=== PATIENT | male | born 2000 | race Caucasian/White ===

== ENCOUNTER 2022-11-27 14:24 | Emergency (ER) | payer OTHER, SELFPAY ==
[2022-11-27 14:32] VITALS: BP 145/83; PULSE 88; RESP 20; TEMP 36.6; O2SAT 99; BMI 22.9
--- NOTE | 2022-11-27 15:16 | ED.NAVMDI ---
HPI - Nausea/Vomiting/Diarrhea General Chief complaint: Nausea/Vomiting Stated complaint: Food Poisoning Time Seen by Provider: 11/27/22 15:13 History of Present Illness HPI Narrative: This 21-year-old male comes in with his girlfriend. They both began to have nausea, vomiting, and diarrhea that started this morning. He ate some [employer] pizza last night and is suspicious that this may have triggered these symptoms. He did not feel any symptoms until this morning however. He has not had any fever or blood in the toilet. Prior to this he was in good health. Related Data Previous Rx's Medication Instructions Recorded ondansetron HCl 4 mg tablet 4 mg PO Q6H #10 tabs 11/27/22 Allergies Allergy/AdvReac Type Severity Reaction Status Date / Time Penicillins Allergy Severe Anaphylaxis Verified 11/27/22 14:37 Review of Systems Status of ROS: Reports: 10 or more systems reviewed and unremarkable except as noted in History and below Narrative: Constitutional: No fevers, no weight gain or loss. Eyes: No discharge. No vision changes. HENT: No congestion, no sore throat, no ear pain. Cardiovascular: No chest pain, no palpitations. Respiratory: No shortness of breath, no wheezes, no cough. Gastrointestinal: Nausea, vomiting, and diarrhea. Genitourinary: No dysuria, no hematuria. Musculoskeletal: Normal range of motion. Skin: No rashes, no pruritis. Neurological: No dizziness, weakness, sensory change, speech change. Endo/Heme/Allergies: No bruising or bleeding. No polydipsia. Pysch: no suicidality, no anxiety, no insomnia. All other systems reviewed and are negative. Exam Narrative: Exam Narrative: Constitutional: Well-developed, well-nourished, no acute distress. HEENT: Normocephalic, atraumatic. Neck: Normal range of motion. Nontender. Supple. Heart: Regular. No murmurs. Normal rate. Intact distal pulses. Lungs: Clear to auscultation. No chest discomfort. No wheezes, rhonchi, or rales. Abdomen: Normal bowel sounds. No rebound tenderness. Genitalia: Deferred. Back: No midline tenderness. Normal range of motion. Extremities: Normal range of motion. No injury. Skin: Intact. No rash. Warm. No erythema or pallor. Neurologic: No altered sensation. No weakness. Alert and oriented. Psychiatric: No suicidality. No anxiety or depression. No insomnia. Nursing notes and vitals signs are reviewed. Const: Vital Signs, click to edit/add: Vital Signs - 24 hr 11/27/22 14:32 Temperature 97.9 F Pulse Rate [Pulse Oximeter] 88 Respiratory Rate 20 Blood Pressure [Ri ght Upper Arm] 145/83 H Pulse Oximetry 99 Oxygen Delivery Me thod Room Air Course Vital Signs Vital signs: Initial Vital Signs Temperature 97.9 F 11/27/22 14:32 Temperature Source Oral 11/27/22 14:32 Pulse Rate 88 11/27/22 14:32 Pulse Rhythm 11/27/22 14:32 Pulse Strength 3+ Normal 11/27/22 14:32 Respiratory Rate 20 11/27/22 14:32 Blood Pressure 145/83 H 11/27/22 14:32 Blood Pressure Mean 103 11/27/22 14:32 Blood Pressure Position Sitting 11/27/22 14:32 Pulse Oximetry 99 11/27/22 14:32 Oxygen Delivery Method 11/27/22 14:32 Vital Signs Temperature 97.9 F 11/27/22 14:32 Pulse Rate 88 11/27/22 14:32 Respiratory Rate 20 11/27/22 14:32 Blood Pressure 145/83 H 11/27/22 14:32 Pulse Oximetry 99 11/27/22 14:32 Oxygen Delivery Method 11/27/22 14:32 Temperature 97.9 F 11/27/22 14:32 Pulse Rate 88 11/27/22 14:32 Respiratory Rate 20 11/27/22 14:32 Blood Pressure 145/83 H 11/27/22 14:32 Pulse Oximetry 99 11/27/22 14:32 Oxygen Delivery Method 11/27/22 14:32 MDM - Nausea/Vomiting/Diarrhea MDM Narrative Medical decision making narrative: This patient comes in with nausea, vomiting and diarrhea. These symptoms started this morning. He arrives with normal vital signs. An IV was established where he received a L of normal saline intravenously along with 4 mg of Zofran. This brought relief to his nausea and he is no longer vomiting. At the time of discharge the patient appears safe for outpatient management. The treatment plan is reviewed along with written and verbal return precautions. Reasons to return and the importance of close followup were also reviewed. Discharge Plan Discharge Clinical Impression: Gastroenteritis Patient Disposition: Home, Self-Care Condition: Improved Additional Instructions: Increase diet as tolerated. Use medicine as needed and indicated. Follow up with MD or return if worsening. Prescriptions: New ondansetron HCl 4 mg tablet 4 mg PO Q6H Qty: 10 0RF Follow Up/Referrals: Provider,Not a Local [Primary Care Provider] - Stand Alone Forms: [employer] Info Instructions
[2022-11-27] MEDS: ONDANSETRON 2 MG/ML inj 4 MG IVP (15:25)
[2022-11-27] MEDS: 0.9 % SODIUM CHLORIDE 1000 ml 1,000 ML IV (15:35)
[2022-11-27 15:47] LABS: Basophils Percent Auto 0.1 % (0.0-3.0); Eosinophils Percent Auto 0.6 % (0.0-7.0); Hematocrit 45.6 % (37.0-53.0); Hemoglobin* 15.8 gm/dL (13.5-17.5); Immature Granulocytes Pct Auto 0.3 %; Lymphocytes Percent Auto 3.4 % (20-44); Mean Corpuscular HGB Conc 35 gm/dL (32-36); Mean Corpuscular Hemoglobin 30 pg (26-34); Mean Corpuscular Volume 86 fL (80-100); Monocytes Percent Auto 4.1 % (0.0-11.0); Neutrophils Percent Auto 91.5 % (42.0-72.0); Platelet Count* 204 K/uL (140-440); RDW Coefficient of Variation % 12.3 % (11.5-15.5); Red Blood Count 5.29 m/uL (4.30-5.90); White Blood Count* 13.67 K/uL (4.50-11.00)
[2022-11-27 15:57] LABS: Slide Review Reflex No
[2022-11-27 16:04] LABS: Chloride* 102 mmol/L (96-114); Potassium* 4.4 mmol/L (3.6-5.1); Sodium* 139 mmol/L (135-149)
[2022-11-27 16:06] LABS: Creatinine* 0.8 mg/dL (0.5-1.5); Estimated Glomerular Filt Rate 130 ml/min
[2022-11-27 16:07] LABS: Blood Urea Nitrogen* 22 mg/dL (5-24); Calcium* 9.8 mg/dL (8.4-10.6); Carbon Dioxide* 30 mmol/L (20-32); Glucose* 99 mg/dL (60-115)
[2022-11-27 16:32] VITALS: BP 102/51; PULSE 75; RESP 18; O2SAT 99
== END 2022-11-27 16:35 | disposition home or self-care (01) ==
PROVIDERS: Emergency Provider Emergency Medicine Emergency Medical Services
DX: K52.9 Noninfective gastroenteritis and colitis, unspecified (principal)
CPT/HCPCS: 36415; 80048; 85025; 96361; 96374; 99283; 99284; J2405; J7030

== ENCOUNTER 2022-12-04 08:02 | Outpatient (CLI) | payer OTHER, SELFPAY ==
[2022-12-04 08:25] LABS: Basophils Absolute Auto 0.04 K/uL (0.00-0.30); Basophils Percent Auto 0.6 % (0.0-3.0); Eosinophils Absolute Auto 0.15 K/uL (0.00-0.50); Eosinophils Percent Auto 2.3 % (0.0-7.0); Hematocrit 43.4 % (37.0-53.0); Immature Granulocytes Abs Auto 0.15 K/uL (0.00-0.30); Immature Granulocytes Pct Auto 2.3 %; Lymphocytes Absolute Auto 2.29 K/uL (0.90-2.90); Lymphocytes Percent Auto 34.9 % (20-44); Mean Corpuscular HGB Conc 35 gm/dL (32-36); Mean Corpuscular Hemoglobin 30 pg (26-34); Mean Corpuscular Volume 87 fL (80-100); Monocytes Percent Auto 5.5 % (0.0-11.0); Neutrophils Absolute Auto 3.57 K/uL (1.7-7.0); Neutrophils Percent Auto 54.4 % (42.0-72.0); Platelet Count* 223 K/uL (140-440); RDW Coefficient of Variation % 12.1 % (11.5-15.5); Red Blood Count 5.01 m/uL (4.30-5.90); Slide Review Reflex No; White Blood Count* 6.56 K/uL (4.50-11.00)
[2022-12-04 08:27] LABS: Appearance Urine Clear (Clear); Bilirubin Urine Negative (Negative); Blood Urine Negative (Negative); Color Urine Yellow (Yellow); Glucose Urine Negative (Negative); Ketones Urine Negative (Negative); Leukocyte Esterase Urine Negative (Negative); Nitrite Urine Negative (Negative); Protein Urine Negative (Negative); Specific Gravity Urine 1.025 (1.000-1.030); Urobilinogen Urine 0.2 (0.2-1.0); pH Urine 5.5 (5.0-8.5)
[2022-12-04 08:43] LABS: Albumin* 4.7 g/dL (3.3-5.0); Chloride* 103 mmol/L (96-114); Sodium* 142 mmol/L (135-149)
[2022-12-04 08:44] LABS: Potassium* 4.2 mmol/L (3.6-5.1)
[2022-12-04 08:46] LABS: Alanine Aminotransferase* 112 U/L (4-50); Alkaline Phosphatase* 73 U/L (40-150); Aspartate Amino Transferase* 75 U/L (12-35); Bilirubin Total* 0.7 mg/dL (0.1-1.5); Blood Urea Nitrogen* 17 mg/dL (5-24); Carbon Dioxide* 32 mmol/L (20-32); Estimated Glomerular Filt Rate 111 ml/min; Glucose* 95 mg/dL (60-115); Total Protein* 7.9 g/dL (6.0-8.3)
[2022-12-04 08:47] LABS: Calcium* 9.9 mg/dL (8.4-10.6)
[2022-12-04 08:50] LABS: INR 1.13 (0.91-1.10); Prothrombin Time 15.2 Seconds
[2022-12-04 09:00] LABS: Iron* 118 ug/dL (49-181)
[2022-12-04 09:09] LABS: Percent Iron Saturation 31 % (20-50); Total Iron Binding Capacity 384 ug/dL (261-462)
[2022-12-04 09:35] LABS: Vitamin B12* 671 pg/mL (243-894)
[2022-12-04 12:03] LABS: Partial Thromboplastin Time* 32 Seconds (23-33)
[2022-12-05 23:59] LABS: T3 Uptake 38 % (28-41)
[2022-12-09 15:53] LABS: C Reactive Protein* 0.6 mg/dL (0.5-1.0)
== END 2022-12-04 08:03 | disposition home or self-care (01) ==
PROVIDERS: Visit Provider Nurse Practitioner Family
DX: M99.05 Segmental and somatic dysfunction of pelvic region (principal); M54.51 Vertebrogenic low back pain; Z01.818 Encounter for other preprocedural examination
CPT/HCPCS: 36415; 80053; 81003; 82607; 82728; 83540; 83550; 84436; 84443; 84479; 85025; 85610; 85730; 86140

== ENCOUNTER 2024-03-18 19:44 | Emergency (ER) | payer OTHER, SELFPAY ==
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
--- OUTSIDE RECORDS SUMMARY | 2024-03-18 19:51 | XMS_ITS | Data Portability ---
Author Name Unknown Address [address] [place] [address] Phone [phone] Organization [facility], [place] [facility] [place] Address [address] [address] Assessment Encounter Date Assessment Date Assessment LastModified by Organization Details LastModified Time 01/29/2017 01/29/2017 Patient was told that as this point they would benefit from a cam walker. They were fitted for the cam walker in the office today and when placed on their foot it did fit well. They were neurovascularly intact distally. [email or web address] Not available 01/29/2017 09:08:06 02/03/2017 02/03/2017 CONT WITH CAM WALKER X 3 WEEKS. Patient will begin/continue to take an multi-vitamin in addition to Ca+2 and Vit D supplements. [email or web address] Not available 02/03/2017 09:07:02 02/24/2017 02/24/2017 cont cam walker; fu 1 week; Patient will begin/continue to take an multi-vitamin in addition to Ca+2 and Vit D supplements. will likely begin running in 1-2 weeks [email or web address] Not available 02/24/2017 08:38:56 03/03/2017 03/03/2017 TAPER OFF CAM WALKER; FU 1 WEEK [email or web address] Not available 03/03/2017 08:54:41 03/10/2017 03/10/2017 TAPER OFF CAM WALKER; NO RUNNING X 1 WEEK sdelamora Not available 03/10/2017 08:43:45 04/13/2018 04/13/2018 I do believe the patient may benefit from a medrol dose pack. All risks, benefits, and alternatives to the medication were discussed with the patient today and all questions were answered to the patient's satisfaction. At this time I do believe the patient would benefit from physical therapy 2-3 times per week for the next 6 week. [email or web address] Not available 04/13/2018 14:41:23 12/13/2019 12/13/2019 At this time I d o believe it is medically necessary for the patient to obtain an MRI. They were instructed to follow up in the office with the films 2-3 days after having the MRI. Patient was told at this time I would recommend they begin icing the area 2-3 times per day for no more than 20 minutes each time. In addition they will begin taking oral NSAIDs and/or Tylenol as instructed in the office today. Patient stated they understood and did agree with plan. sdelamora Not available 12/13/2019 15:59:50 12/27/2019 12/27/2019 At this time I d o believe the patient would benefit from physical therapy 2-3 times per week for the next 6 week. NO WRESTLING X 1 WEEK sdelamora Not available 12/27/2019 14:59:50 07/10/2022 07/10/2022 At this time I d o believe it is medically necessary for the patient to obtain an MRI. They were instructed to follow up in the office with the films 2-3 days after having the MRI. Patient was told at this time I would recommend they begin icing the area 2-3 times per day for no more than 20 minutes each time. In addition they will begin taking oral NSAIDs and/or Tylenol as instructed in the office today. Patient stated they understood and did agree with plan. [email or web address] Not available 07/10/2022 11:09:24 07/17/2022 07/17/2022 I. Patient was told at this time I would recommend they begin icing the area 2-3 times per day for no more than 20 minutes each time. In addition they will begin taking oral NSAIDs and/or Tylenol as instructed in the office today. Patient stated they understood and did agree with plan. [email or web address] Not available 07/17/2022 10:14:04 08/13/2022 08/13/2022 At this time I d o believe the patient would benefit from physical therapy 2-3 times per week for the next 6 week. I do believe the patient may benefit from Mobic. All risks, benefits, potential drug interactions, and alternatives to the medication were discussed with the patient today and all questions were answered to the patient's satisfaction. Patient was told that they may need an epidural steroid injection in the future. I did spend 12 minutes during the telemed appt with the patient. [email or web address] Not available 08/13/2022 14:08:30 09/11/2022 09/11/2022 At this time I d o believe the patient would benefit from physical therapy 2-3 times per week for the next 6 week. 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 I do believe the patient may benefit from Celebrex. All risks, benefits, potential drug interactions, and alternatives to the medication were discussed with the patient today and all questions were answered to the patient's satisfaction. I did spend 12 minutes during the telemed appt with the patient. [email or web address] Not available 09/11/2022 09:04:41 10/21/2022 10/21/2022 I do believe the patient may benefit from Celebrex. All risks, benefits, potential drug interactions, and alternatives to the medication were discussed with the patient today and all questions were answered to the patient's satisfaction. At this time I do believe the patient would benefit from physical therapy 2-3 times per week for the next 6 week. All risks, benefits and potential outcomes/complicat ions of surgical vs conservative treatment were discussed with the patient and all questions were answered to their satisfaction. At this time they were told I do not recommend surgery for their lumbar spine . I did spend 10 minutes during the telemed appt with the patient. [email or web address] Not available 10/21/2022 08:36:42 Plan of Treatment Reminders Order Date Submit Date Provider Last Modified By Organization Details Last Modified Time Details Appointments None recorded. Lab None recorded. Referral physical therapist referral - It is medically necessary for patient to receive physical therapy in order to improve ROM, strength, balance and gait2-3 x week x 6 weeksAll modalities prnLE Stretching core strengthen ingAROM, PROM, RROMManual therapy prnMassage prn 2021 022 [email or web address] Not available 09:03:39 physical therapist referral - It is medically necessary for patient to receive physical therapy in order to improve ROM, strength, balance and gait2-3 x week x 6 weeksAll modalities prnLE Stretching core strengthen ingAROM, PROM, RROMManual therapy prnMassage prn 2021 022 [email or web address] Not available 13:39:19 pain management referral - PLEASE EVALUATE FOR KRYSTLE 2021 022 [email or web address] Not available 2 13:40:32 physical therapist referral - It is medically necessary for patient to receive physical therapy in order to improve ROM, strength, balance and gait2-3 x week x 6 weeksAll modalities prnLE Stretching core strengthen ingAROM, PROM, RROMManual therapy prnMassage prn 2021 022 [email or web address] Not available 14:20:11 physical therapist referral - It is medically necessary for patient to receive physical therapy in order to improve ROM, strength, balance and gait2-3 x week x 6 weeksAll modalities prnLE Stretching core strengthen ingAROM, PROM, RROMManual therapy prnMassage prn 2021 022 [email or web address] Not available 2 10:47:55 physical therapist referral 2019 020 [email or web address] Not available 0 15:01:28 physical therapist referral 2017 018 [email or web address] Not available 8 14:44:09 physical therapist referral 2016 017 [email or web address] Not available 7 11:54:07 physical therapist referral 2016 017 [email or web address] Not available 7 16:13:46 physical therapist referral 2016 017 [email or web address] Not available 7 15:09:15 physical therapist referral 2016 017 [email or web address] Not available 7 14:47:11 physical therapist referral 2016 017 [email or web address] Not available 7 12:37:11 Procedures None recorded. Surgeries None recorded. Imaging MRI, lumbar spine, w/o contrast - Please obtain auth and contact patient for scheduling . 2021 022 ALLY [facility], [address] [place], [address], 2 11:08:49 XR, lumbosacra l spine 2021 022 In-House Test, For Internal Use Only, Do Not Delete/merge, [id number] 2 10:34:43 MRI, hip, w/o contrast 2019 020 ALLY In-House Test, For Internal Use Only, Do Not Delete/merge, [id number] 0 16:50:23 XR, hip, unilateral 2019 020 [email or web address] In-House Test, For Internal Use Only, Do Not Delete/merge, [id number] 0 15:59:51 MRI, lower leg, w/o contrast 2017 018 ALLY In-House Test, For Internal Use Only, Do Not Delete/merge, [id number] 8 15:03:27 MRI, lower leg, w/o contrast 2016 017 ALLY In-House Test, For Internal Use Only, Do Not Delete/merge, [id number] 7 08:50:32 XR, ankle, 3 or more view 2016 017 [email or web address] In-House Test, For Internal Use Only, Do Not Delete/merge, [id number] 7 09:07:42 XR, ankle, 3 or more view 2016 017 [email or web address] In-House Test, For Internal Use Only, Do Not Delete/merge, [id number] 7 08:46:16 MRI, ankle, w/o contrast 2016 017 ALLY Not available 7 08:43:33 XR, ankle, 3 or more view 2016 017 [email or web address] In-House Test, For Internal Use Only, Do Not Delete/merge, [id number] 7 09:11:55 Medication Orders Celebrex 200 mg capsule [address] [facility], [address] [facility], [place], [address], 08:38:41 Celebrex 200 mg capsule [address] [facility], [address] [facility], [place], [address], 09:05:33 Mobic 15 mg tablet 2021 [facility], [address] [place] [address], [address], 14:34:57 methylpred nisolone 4 mg tablets in a dose pack [address] [facility], [address] [facility], [place], [address], 10:17:02 methylpred nisolone 4 mg tablets in a dose pack 2017 018 [facility], [address] [place] [address], [place], [address], 8 14:45:33 Patient TargetsNo targets recorded. Patient InstructionsNo instructions recorded. Reason for Referral Referring Physician: Isma Mcgill, Orthopedic Surgery, Encounter Date: 03/03/2017 Referring Physician: Isma Mcgill, Orthopedic Surgery, Encounter Date: 03/10/2017 Referring Physician: Isma Mcgill, Orthopedic Surgery, Encounter Date: 03/31/2017 Referring Physician: Isma Mcgill Orthopedic Surgery, Encounter Date: 04/21/2017 Referring Physician: Isma Mcgill Orthopedic Surgery, Encounter Date: 05/26/2017 Referring Physician: Isma Mcgill Orthopedic Surgery, Encounter Date: 04/13/2018 Physical Therapist Referral for Strain of flexor muscle of hip Referring Physician: Isma Mcgill Orthopedic Surgery, Encounter Date: 12/27/2019 Physical Therapist Referral for Pain in lumbar spine It is medically necessary for patient to receive physical therapy in order to improve ROM, strength, balance and gait2-3 x week x 6 weeksAll modalities prnLE Stretchingcore strengtheningAROM, PROM, RROMManual therapy prnMassage prn Referring Physician: Isma Mcgill Orthopedic Surgery, Encounter Date: 07/17/2022 Physical Therapist Referral for Pain in lumbar spine It is medically necessary for patient to receive physical therapy in order to improve ROM, strength, balance and gait2-3 x week x 6 weeksAll modalities prnLE Stretchingcore strengtheningAROM, PROM, RROMManual therapy prnMassage prn Referring Physician: Isma Mcgill, Orthopedic Surgery, Encounter Date: 08/13/2022 Physical Therapist Referral for Pain in lumbar spine It is medically necessary for patient to receive physical therapy in order to improve ROM, strength, balance and gait2-3 x week x 6 weeksAll modalities prnLE Stretchingcore strengtheningAROM, PROM, RROMManual therapy prnMassage prn Referring Physician: Isma Mcgill Orthopedic Surgery, Encounter Date: 09/11/2022 Pain Management Referral for Pain in lumbar spine PLEASE EVALUATE FOR KRYSTLE Referring Physician: Isma Mcgill Orthopedic Surgery, Encounter Date: 09/11/2022 Physical Therapist Referral for Pain in lumbar spine It is medically necessary for patient to receive physical therapy in order to improve ROM, strength, balance and gait2-3 x week x 6 weeksAll modalities prnLE Stretchingcore strengtheningAROM, PROM, RROMManual therapy prnMassage prn Referring Physician: Isma Mcgill Orthopedic Surgery, Encounter Date: 10/21/2022 Results Created Date Observation Date Name Description Value Unit Range Abnormal Flag LastModifiedBy Organization Detail LastModifiedTime 02/03/20 17 MRI, ankle , w/o contr ast No observ ation record ed. [email or web address] Not Available 02/02/2017 10:54:58 04/24/20 17 MRI, lower leg, w/o contr ast No observ ation record ed. [email or web address] In-House Test For Internal Use Only, Do Not Delete/merge, [id number] 04/24/2017 08:51:23 04/24/20 17 MRI, lower leg, w/o contr ast No observ ation record ed. [email or web address] In-House Test For Internal Use Only, Do Not Delete/merge, [id number] 04/24/2017 08:52:19 04/09/20 18 04/09/2018 MRI, lower leg, w/o contr ast No observ ation record ed. [email or web address], [place]. [address] [place], [address], 04/12/2018 15:54:44 04/09/20 18 04/09/2018 MRI, lower leg, w/o contr ast No observ ation record ed. [facility] [address], [address], 04/12/2018 15:54:44 12/20/19 20 12/20/2019 MRI, hip, w/o contr ast No observ ation record ed. [employer], [place]. [id number] [place], [address], 12/21/2019 11:47:04 12/20/19 20 12/20/2019 MRI, hip, w/o contr ast No observ ation record ed. [facility] [address] [place] [address], [address], 12/21/2019 11:47:04 07/10/20 22 XR, lumbo sacra l spine No observ ation record ed. [email or web address] In-House Test For Internal Use Only, Do Not Delete/merge, [id number] 07/10/2022 10:34:40 07/12/20 22 07/12/2022 MRI, lumba r spine , w/o contr ast No observ ation record ed. [facility] [address], [place], [address], 07/14/2022 08:31:36 07/16/20 MRI, lumba r spine , w/o contr ast No observ ation record ed. [facility] [address] [place], [address], 07/16/2022 15:48:37 09/23/20 22 09/23/2022 epidu ral stero id injec tion, lumba r (PROC ) No observ ation record ed. [email or web address] [facility] [address], [address], 09/24/2022 09:58:08 Result Notes None recorded. Problems Name Status Onset Date Resolution Date Notes Provider Name and Address Organization Details Recorded Time Ankle pain Active 7 Isma Mcgill MD [address] [place], [address], [facility] 01/29/2017 09:07:47 Problem Notes None recorded. Procedures Surgical History None recorded. Imaging Results Imaging Date Name Status LastModified by [facility] Details LastModified Time 02/02/2017 MRI, ankle, w/o contrast completed [email or web address] Information not available 02/02/2017 10:54:58 04/24/2017 MRI, lower leg, w/o contrast completed [email or web address] In-House Test For Internal Use Only, Do Not Delete/merge, [id number] 04/24/2017 08:51:23 04/24/2017 MRI, lower leg, w/o contrast completed [email or web address] In-House Test For Internal Use Only, Do Not Delete/merge, [id number] 04/24/2017 08:52:19 04/09/2018 MRI, lower leg, w/o contrast completed [employer] [address] [place], [address], 04/12/2018 15:54:44 04/09/2018 MRI, lower leg, w/o contrast completed [facility] [address] [place], [address], 04/12/2018 15:54:44 12/20/2019 MRI, hip, w/o contrast completed [employer] [address] [place], [address], 12/21/2019 11:47:04 12/20/2019 MRI, hip, w/o contrast completed [facility] [address] [place], [address], 12/21/2019 11:47:04 07/10/2022 XR, lumbosacral spine completed [email or web address] In-House Test For Internal Use Only, Do Not Delete/merge, [id number] 07/10/2022 10:34:40 07/12/2022 MRI, lumbar spine, w/o contrast completed [facility] [address] [place], [address], 07/14/2022 08:31:36 07/16/2022 MRI, lumbar spine, w/o contrast completed [facility] [address] [place], [address], 07/16/2022 15:48:37 09/23/2022 epidural steroid injection, lumbar (PROC) completed [facility] [address], [address], 09/24/2022 09:58:08 Procedure Notes None recorded. Medical Equipment None Reported. Allergies Allergen ID Allergen Name Allergen Category Reaction Reaction Severity Criticality Documentation Date Start Date Code Code System Note Provider Name and Address Organization Details Recorded Time 74880 penicilli n G Not available Not available Not available Not available 01/29/2017 7980 RxNorm ISAK INFANTE [address], [place], [address], [facility] 7 08:39:50 Medications Name Sig Start Date Stop Date Status Note LastModified by Organization Details LastModified Time celecoxib 200 mg capsule Take 1 capsule twice a day by oral route. active Not Available Not Available No t Available azithromycin 250 mg tablet active Not Available Not Availabl e Not Available acetazolamide 125 mg tablet active Not Available Not Availabl e Not Available meloxicam 15 mg tablet Take 1 tablet every day by oral route. active Not Available Not Available No t Available atovaquone 250 mg-proguanil 100 mg tablet active Not Available Not Availabl e Not Available methylphenidat e 5 mg tablet active Not Available Not Availabl e Not Available methylpredniso lone 4 mg tablet active Not Available Not Available Not Available Concerta 54 mg tablet,extende d release active Not Available Not Available No t Available Concerta 36 mg tablet,extende d release active Not Available Not Available No t Available methylpredniso lone 4 mg tablets in a dose pack USE DIRECTED 2021 active Not Available Not Available Not Avai lable Flovent HFA 44 mcg/actuation aerosol inhaler active Not Available Not Available Not Available ProAir HFA 90 mcg/actuation aerosol inhaler active Not Available Not Available Not Available Vitals Date Recorded Body height Body mass index (BMI) Percentile per age and sex Body mass index (BMI) Body weight Provider Name and Address Organization Details Last Updated DateTime 07/10/2022 180.34 cm 62 % 24.4 kg/m2 81066.66 g Kennedy Macias [facility] 07/10/2022 09:58:27 Social History Question Answer Notes LastModified by Organizat ion Details LastModified Time Tobacco Smoking Status Never Smoker ISAK INFANTE [address], [place], [address], [facility] 01/29/2017 08:39:54 What Is Your Level Of Alcohol Consumption? None Information not available 01/29/2017 Marital Status Single Informatio n not available 01/29/2017 What Was The Date Of Your Most Recent Tobacco Screening? 04/13/2018 Information n ot available 06/10/2019 Sex: Male Functional Status None recorded. Mental Status None recorded. Family History Nothing Reported. Medical History Condition Response Diabetes N Gout N Bleeding Disorder N High Blood Pressure N Thyroid Disease N Arthritis N Acid Reflux N Cancer N Asthma N COPD N HIV/AIDS N Substance Abuse N Clotting Disorder (ie; blood clot) N Rheumatoid Arthritis N Osteoporosis N Kidney Disease N Past Encounters Encounter ID Performer Location Encounter Start Date Encounter Closed Date Diagnosis/Indication Diagnosis SNOMED-CT Code [id number] Isma Mcgill MD [facility] [address] [place] [address] 01/29/2017 08:19:25 01/29/2017 09:11:54 Ankle pain [id number] Isma Mcgill MD [facility] [address] [place] [address] 02/03/2017 08:25:00 02/03/2017 09:10:43 Fracture of calcaneus [id number] Isma Mcgill MD [facility] [address] [place] [address] 02/24/2017 08:09:39 02/24/2017 08:46:16 Fracture of calcaneus 249077875 [id number] Isma Mcgill MD [facility] [address] [place] [address] 03/03/2017 08:24:40 03/03/2017 09:07:42 Fracture of calcaneus [id number] Isma Mcgill MD [facility] [address] [place] [address] 03/10/2017 08:17:30 03/10/2017 08:56:10 Fracture of calcaneus 261370804 [id number] Isma Mcgill MD [facility] [address] [place] [address] 03/31/2017 08:21:37 04/04/2017 16:35:56 Ankle pain [id number] [id number] Isma Mcgill MD [facility] [address] [place] [address] 04/21/2017 08:27:01 04/21/2017 08:56:21 Stress fracture of tibia 812491149 Anterior nuñez splints 20 [id number] [id number] Isma Mcgill MD [facility] [address] [place] [address] 05/26/2017 07:59:01 05/26/2017 08:34:01 Anterior nuñez splints [id number] MD [facility]JOR[facility] [place] [address] [place] [address] 04/09/2018 07:57:46 04/09/2018 13:27:57 Stress fracture of tibia 195148899 [id number] Isma Mcgill MD [facility] [address] [place] [address] 04/13/2018 14:09:52 04/13/2018 14:44:09 Anterior nuñez splints 506685580 [id number] Isma Mcgill MD [facility] [address] [place] [address] 12/13/2019 14:42:35 12/13/2019 16:01:51 Articular cartilage disorder of hip 179802303 [id number] Isma Mcgill MD [facility] [address] [place] [address] 12/27/2019 14:36:36 12/27/2019 15:00:59 Strain of flexor muscle of hip 042391126 [id number] [facility] [address] [place] [address] 07/10/2022 09:46:29 07/11/2022 03:47:36 Spondylolysis 834593418 [id number] Isma Mcgill MD [facility] [address] [place] [address] 07/17/2022 10:10:11 07/17/2022 12:58:54 Spondylolysis 695635615 Pain in lumbar spine 267 [id number] [id number] Isma Mcgill MD [place] [facility] [address] [address] 08/13/2022 14:02:42 08/13/2022 14:09:13 Pain in lumbar spine 630502902 [id number] MD MARJORIE [facility] [place] [address] [place] [address] 09/11/2022 08:43:27 09/11/2022 09:05:49 Pain in lumbar spine 335997731 [id number] MD MARJORIE [facility] [place] [address] [place] [address] 10/21/2022 08:35:09 10/21/2022 11:21:35 Pain in lumbar spine [id number] Health Concerns Section Related Observation LastModified by Organization Detai ls LastModified Time None Recorded Concern Status LastModified by Organization Details LastModified Time None Recorded Advance Directives Directive None Recorded Payers Encounter Date Sequence Insurance Name Policy Number Policy Rivera Covered Member ID Rivera Member ID Guarantor Name 10/21/2022 1 [facility] [id number] [facility] [id number] [facility] 09/11/2022 1 [facility] [id number] [facility] [id number] [facility] 08/13/2022 1 [facility] [id number] [facility] [id number] [facility] 07/17/2022 1 [facility] [id number] [facility] [id number] [facility] 07/10/2022 1 [facility] [id number] [facility] [id number] [facility] 12/27/2019 2 [employer]: [place] [employer] (O) [id number] Camilla Martina [id number] [facility] 12/13/2019 2 [place] [employer] ([place]) [id number] [facility] [id number] [facility] 04/13/[address] [place] [address] [id number] [facility] [id number] [facility] 04/09/2018 1 [facility] [id number] [facility] [id number] [facility] 05/26/2017 1 [facility] [id number] [facility] [id number] [facility] 04/21/2017 1 [employer] (POS) [id number] Camilla A Martina [id number] Camilla Martina 03/31/2017 1 [employer] (POS) [id number] Camilla A Martina [id number] Camilla Martina 03/10/2017 1 [employer] (POS) [id number] Camilla A Martina [id number] [facility] 03/03/2017 1 [employer] (POS) [id number] Camilla A Martina [id number] [facility] 02/24/2017 1 [employer] (POS) [id number] Camilla A Martina [id number] Camilla Martina 02/03/2017 1 [employer] (POS) [id number] Camilla A Martina [id number] [facility] 01/29/2017 1 [employer] (POS) [id number] Camilla A Martina [id number] [facility] Notes Date Note Type Note Provider Name and Address Organization Details Recorded Time 01/29/2017 text/html HPI Notes: Ankle Reported by patient. Location: left; posterior Quality: dull Severity: mild; moderate Duration: date of onset: (~01/14/17) Timing: acute Context: sports injury (PAIN WITH RUNNING) Alleviating Factors: rest Aggravating Factors: exercise Associated Symptoms: no weakness; no numbness; no tingling; no swelling; no redness; no warmth; no ecchymosis; no catching/locking; no popping/clicking; no buckling; no grinding; no instability; no radiation down leg; no drainage; no fever; no chills; no weight loss; no change in bowel/bladder habits Isma Mcgill MD [address] [place] [address],[address], [place], [phone], [facility] 01/29/2017 09:08:29 02/03/2017 text/html HPI Notes: Ankle Reported by patient. Location: left; posterior Quality: dull; not changing Severity: mild; moderate Duration: date of onset: (~01/14/17) Timing: acute Context: sports injury (PAIN WITH RUNNING) Alleviating Factors: rest Aggravating Factors: exercise Associated Symptoms: no weakness; no numbness; no tingling; no swelling; no redness; no warmth; no ecchymosis; no catching/locking; no popping/clicking; no buckling; no grinding; no instability; no radiation down leg; no drainage; no fever; no chills; no weight loss; no change in bowel/bladder habits Isma Mcgill MD [address] [place] [address], [phone], [facility] 02/03/2017 09:08:06 02/24/2017 text/html HPI Notes: Ankle Reported by patient. Location: left; posterior Quality: dull; occasional; improving Severity: no pain; mild Duration: date of onset: (~01/14/17) Timing: acute Context: sports injury (PAIN WITH RUNNING) Alleviating Factors: rest Aggravating Factors: cannot identify Associated Symptoms: no weakness; no numbness; no tingling; no swelling; no redness; no warmth; no ecchymosis; no catching/locking; no popping/clicking; no buckling; no grinding; no instability; no radiation down leg; no drainage; no fever; no chills; no weight loss; no change in bowel/bladder habits Isma Mcgill MD [address] [place] [address], [phone], [facility] 02/24/2017 08:40:02 03/03/2017 text/html HPI Notes: Ankle Reported by patient. Location: left; posterior Quality: improving Severity: no pain Duration: date of onset: (~01/14/17) Timing: acute Context: sports injury (PAIN WITH RUNNING) Alleviating Factors: rest; CAM WALKER Aggravating Factors: cannot identify Associated Symptoms: no weakness; no numbness; no tingling; no swelling; no redness; no warmth; no ecchymosis; no catching/locking; no popping/clicking; no buckling; no grinding; no instability; no radiation down leg; no drainage; no fever; no chills; no weight loss; no change in bowel/bladder habits Isma Mcgill MD [address] [place], [phone], [facility] 03/03/2017 08:55:28 03/10/2017 text/html HPI Notes: Ankle Reported by patient. Location: left; posterior Quality: improving Severity: no pain Duration: date of onset: (~01/14/17) Timing: acute Context: sports injury (PAIN WITH RUNNING) Alleviating Factors: rest; CAM WALKER Aggravating Factors: cannot identify Associated Symptoms: no weakness; no numbness; no tingling; no swelling; no redness; no warmth; no ecchymosis; no catching/locking; no popping/clicking; no buckling; no grinding; no instability; no radiation down leg; no drainage; no fever; no chills; no weight loss; no change in bowel/bladder habits Isma Mcgill MD [address] [place] [address], [phone] 03/10/2017 08:44:04 03/31/2017 text/html HPI Notes: Ankle Reported by patient. Location: left; posterior Quality: improving Severity: no pain Duration: date of onset: (~01/14/17) Timing: acute Context: sports injury (PAIN WITH RUNNING) Alleviating Factors: rest; CAM WALKER Aggravating Factors: cannot identify Associated Symptoms: no weakness; no numbness; no tingling; no swelling; no redness; no warmth; no ecchymosis; no catching/locking; no popping/clicking; no buckling; no grinding; no instability; no radiation down leg; no drainage; no fever; no chills; no weight loss; no change in bowel/bladder habits Isma Mcgill MD [address] [place], [phone] 04/03/2017 14:38:08 04/21/2017 text/html HPI Notes: Ankle Reported by patient. Location: bilateral; posterior Quality: worsening Severity: moderate Duration: date of onset: (~01/14/17) Timing: acute Context: sports injury (PAIN WITH RUNNING) Alleviating Factors: nothing helps Aggravating Factors: exercise Associated Symptoms: no weakness; no numbness; no tingling; no swelling; no redness; no warmth; no ecchymosis; no catching/locking; no popping/clicking; no buckling; no grinding; no instability; no radiation down leg; no drainage; no fever; no chills; no weight loss; no change in bowel/bladder habits Isma Mcgill MD [address] [place] [address], [phone] 04/21/2017 16:13:33 05/26/2017 text/html HPI Notes: Ankle Reported by patient. Location: bilateral; posterior Quality: worsening Severity: no pain Duration: date of onset: (~01/14/17) Timing: acute Context: sports injury (PAIN WITH RUNNING) Alleviating Factors: nothing helps Aggravating Factors: exercise Associated Symptoms: no weakness; no numbness; no tingling; no swelling; no redness; no warmth; no ecchymosis; no catching/locking; no popping/clicking; no buckling; no grinding; no instability; no radiation down leg; no drainage; no fever; no chills; no weight loss; no change in bowel/bladder habits Isma Mcgill MD [address] [place] [address], [phone] 05/26/2017 08:26:05 04/09/2018 text/html HPI Notes: Ankle Reported by patient. Location: bilateral; posterior Quality: worsening Severity: no pain Duration: date of onset: (~01/14/17) Timing: acute Context: sports injury (PAIN WITH RUNNING) Alleviating Factors: nothing helps Aggravating Factors: exercise Associated Symptoms: no weakness; no numbness; no tingling; no swelling; no redness; no warmth; no ecchymosis; no catching/locking; no popping/clicking; no buckling; no grinding; no instability; no radiation down leg; no drainage; no fever; no chills; no weight loss; no change in bowel/bladder habits Isma Mcgill MD [address] [place] [address], [phone], [facility] 04/09/2018 13:05:59 04/13/2018 text/html HPI Notes: Ankle Reported by patient. Location: bilateral; posterior Quality: not changing Severity: no pain Duration: date of onset: (~01/14/17) Timing: acute Context: sports injury (PAIN WITH RUNNING) Alleviating Factors: nothing helps Aggravating Factors: exercise; downstairs Associated Symptoms: no weakness; no numbness; no tingling; no swelling; no redness; no warmth; no ecchymosis; no catching/locking; no popping/clicking; no buckling; no grinding; no instability; no radiation down leg; no drainage; no fever; no chills; no weight loss; no change in bowel/bladder habits Isma Mcgill MD [address] [phone], [facility] 04/13/2018 14:42:40 12/13/2019 text/html HPI Notes: Hip(s ) Reported by patient. Location: left; groin Quality: sharp Severity: moderate Duration: date of onset: (12/10/19) Timing: acute Context: sports injury (SLAMMED DURING WRESTLING MATCH) Alleviating Factors: nothing helps Aggravating Factors: bending/squatting; exercise Associated Symptoms: no weakness; no numbness; no tingling; no swelling; no redness; no warmth; no ecchymosis; no catching/locking; no popping/clicking; no buckling; no grinding; no instability; no radiation down leg; no drainage; no fever; no chills; no weight loss; no change in bowel/bladder habits Isma Mcgill MD [address] [place] [address], [phone], [facility] 12/13/2019 15:59:59 12/27/2019 text/html HPI Notes: Hip(s ) Reported by patient. Location: left Quality: sharp; improving Severity: mild Duration: date of onset: (12/10/19) Timing: acute Context: sports injury (SLAMMED DURING WRESTLING MATCH) Alleviating Factors: rest Aggravating Factors: bending/squatting; exercise Associated Symptoms: no weakness; no numbness; no tingling; no swelling; no redness; no warmth; no ecchymosis; no catching/locking; no popping/clicking; no buckling; no grinding; no instability; no radiation down leg; no drainage; no fever; no chills; no weight loss; no change in bowel/bladder habits Isma Mcgill MD [address] [place], [phone], [facility] 12/27/2019 15:00:31 07/10/2022 text/html HPI Notes: L-spi ne Reported by patient. Location: left Quality: sharp Severity: moderate Duration: date of onset: (07/08/22) Timing: acute Context: surfing Alleviating Factors: nothing helps Aggravating Factors: ROM Associated Symptoms: no weakness; no numbness; no tingling; no swelling; no redness; no warmth; no ecchymosis; no catching/locking; no popping/clicking; no buckling; no grinding; no instability; no radiation down leg; no drainage; no fever; no chills; no weight loss; no change in bowel/bladder habits Notes: has had previous hx of back pain ISAK Mcgill [address] [facility], [place], [phone], [facility] 07/10/2022 11:09:34 07/17/2022 text/html HPI Notes: L-spi ne Reported by patient. Location: left Quality: sharp; not changing Severity: moderate Duration: date of onset: (07/08/22) Timing: acute Context: surfing Alleviating Factors: nothing helps Aggravating Factors: ROM Associated Symptoms: no weakness; no numbness; no tingling; no swelling; no redness; no warmth; no ecchymosis; no catching/locking; no popping/clicking; no buckling; no grinding; no instability; no radiation down leg; no drainage; no fever; no chills; no weight loss; no change in bowel/bladder habits Notes: has had previous hx of back pain Isma Mcgill MD [address] [place], [address], [facility] 07/17/2022 10:16:12 08/13/2022 text/html HPI Notes: L-spi ne Reported by patient. Location: left Quality: dull; improving Severity: mild Duration: date of onset: (07/08/22) Timing: acute Context: surfing Alleviating Factors: PT/OT; medrol Associated Symptoms: no weakness; no numbness; no tingling; no swelling; no redness; no warmth; no ecchymosis; no catching/locking; no popping/clicking; no buckling; no grinding; no instability; no radiation down leg; no drainage; no fever; no chills; no weight loss; no change in bowel/bladder habits Notes: has had previous hx of back pain This visit was conducted with the use of an interactive audio and/or video telecommunications system that permits real time communication between the patient and the provider. Patient gave verbal consent for telemedicine visit to be conducted via telephone Isma Mcgill MD [address] [place], [phone], [facility] 08/13/2022 14:08:58 09/11/2022 text/html HPI Notes: L-spi ne Reported by patient. Location: left Quality: dull; not changing Severity: mild Duration: date of onset: (07/08/22) Timing: acute Context: surfing Alleviating Factors: PT/OT; medrol Associated Symptoms: no weakness; no numbness; no tingling; no swelling; no redness; no warmth; no ecchymosis; no catching/locking; no popping/clicking; no buckling; no grinding; no instability; no radiation down leg; no drainage; no fever; no chills; no weight loss; no change in bowel/bladder habits This visit was conducted with the use of an interactive audio and/or video telecommunications system that permits real time communication between the patient and the provider. Patient gave verbal consent for telemedicine visit to be conducted via telephone Isma Mcgill MD [address] [facility], [place], [phone], [facility] 09/11/2022 09:05:10 10/21/2022 text/html HPI Notes: L-spi ne Reported by patient. Location: left Quality: dull; not changing Severity: mild Duration: date of onset: (07/08/22) Timing: acute Context: surfing Alleviating Factors: PT/OT; NSAIDs; medrol Aggravating Factors: exercise (running) Associated Symptoms: no weakness; no numbness; no tingling; no swelling; no redness; no warmth; no ecchymosis; no catching/locking; no popping/clicking; no buckling; no grinding; no instability; no radiation down leg; no drainage; no fever; no chills; no weight loss; no change in bowel/bladder habits Notes: has multiple questions regarding medication, treatment, possible surgery This visit was conducted with the use of an interactive audio and/or video telecommunications system that permits real time communication between the patient and the provider. Patient gave verbal consent for telemedicine visit to be conducted via telephone Isma Mcgill MD [address], [place], [address], [facility] 10/21/2022 08:36:59
--- OUTSIDE RECORDS SUMMARY | 2024-03-18 19:51 | XMS_ITS | Clinical Summary ---
Author Name Unknown Organization [facility] [employer] Address [place], [place] [address] Care Team Providers Care Block Trader Name Role Phone Pcp, No Primary Care Provider Unavailabl e Allergies Active Allergy Reactions Criticality Noted Date Comments Doxycycline Rash High 09/10/2023 Penicillins Rash High 02/06/2021 Medications Medication Sig Dispensed Refills Start Date End Date Status atovaquone-progu joselyn, 250-100 mg, (MALARONE) 250-100 mg tabletIndication s:Pharmacologic therapy Take 1 Tablet by mouth once daily. Begin 1-2 days before and continue until 1 week after exposure for prevention of malaria. 10 Tablet 09/10/2023 03/09/2024 Discontinued (*Med complete/Reg imen complete/Lev el of care change) Active Problems Problem Noted Date Diagnosed Date Degenerative disc disease, lumbar 09/10/2023 Mitral valve insufficiency 09/10/2023 Leaky heart valve 09/10/2023 Resolved Problems Problem Noted Date Diagnosed Date Resolved Date Mitral valve insufficiency 09/10/2023 1 Nonrheumatic aortic valve insufficiency 09/10/2023 09/10/2023 Encounters Date Type Department Care Team Description 03/09/2024 Telephone [facility] [address] [place] [address] Casa Jenkins MD 03/07/2024 9:55 AM CDT Office Visit [facility] [address] [place] [address] Casa Jenkins MD Concerns (Exposure to TB) 02/22/2024 Nurse Triage [facility] Centralized Nurse Triage Pcp, No Cough from Last 3 Months Immunizations Name Administration Dates Next Due Influenza,LAIV4 Live Intranasal (Flumist) 2020,07/31/2020 Family History Medical History Relation Name Comments Good Health Mother Relation Name Status Comments Mother Social History Tobacco Use Types Packs/Day Years Used Date Smoking Tobacco: Never Smokeless Tobacco: Never Tobacco Cessation:Counseling Given: Yes Alcohol Use Standard Drinks/Week Comments Yes 0 (1 standard drink = 0.6 oz pur e alcohol) PHQ-2 Answer Date Recorded PHQ-2 TOTAL SCORE 0 09/10/2023 Social Connections Answer Date Recorded Frequency of Communication with Friends and Fami ly Not on file 09/10/2023 Sex and Gender Information Value Date Recorded Sex Assigned at Not on file Gender Identity Not on file Sexual Orientation Not on file Obstetrics History Last Filed Vital Signs Vital Sign Reading Time Taken Comments Blood Pressure 131/75 03/07/2024 10:00 AM CDT Pulse 93 03/07/2024 10:00 AM CDT Temperature 36.8 ??C (98.3 ??F) 09/10/2023 8:32 AM CD T Respiratory Rate - - Oxygen Saturation 100% 03/07/2024 10:00 AM CDT Inhaled Oxygen Concentration - - Weight 83.5 kg (184 lb) 09/10/2023 8:32 AM CDT Height 182 cm (5' 11.65) 09/10/2023 8:32 AM CDT Body Mass Index 25.2 09/10/2023 8:32 AM CDT Plan of Treatment Health Maintenance Due Date Last Done Comments Tdap 2012 HIV for age 15-65 2016 HPV series for age 9-26 (1 - Male 3-dose series) 2016 Hepatitis C screening for ag e 18-79 2019 Tetanus booster 2021 COVID-19 vaccine series ( season) 2023 11/29/2021, 03/14/2021, 02/14/2021 Influenza for age 9-49 07/17/2024 , 07/31/2020 BMI (ht and wt on same day) for age 18+ 09/10/2024 09/10/2023 Depression screening for age 12+ 09/10/2024 09/10/2023 Pneumococcal series for age 6-64 Aged Out No longer eligible b ased on patient's age to complete this topic Procedures Procedure Name Priority Date/Time Associated Diagnosis Comments QFT MITOGEN PERFORMABLE Routine 03/07/2024 10:49 AM CDT Exposure to TB QFT TB2 PERFORMABLE Routine 03/07/2024 1 0:49 AM CDT Exposure to TB QFT TB1 PERFORMABLE Routine 03/07/2024 1 0:49 AM CDT Exposure to TB QUANTIFERON TB GOLD PLUS Routine 03/07/2024 10:49 AM CDT Exposure to TB QUANTIFERON TB GOLD PLUS Routine 03/07/2024 10:49 AM CDT Exposure to TB from Last 3 Months Results * QFT MITOGEN PERFORMABLE (03/07/2024 10:49 AM CDT) MITOGEN 10.00 IU/mL 03/09/2024 12:04 PM CDT [facility] Blood BLOOD SPECIMEN / Unknown Venipuncture / Unknown 03/07/2024 10:49 AM CDT 03/07/2024 10:52 AM CDT Casa Jenkins MD CHEMISTRY [facility] [address] [place] [address], * QFT TB2 PERFORMABLE (03/07/2024 10:49 AM CDT) TB2 0.10 IU/mL 03/09/2024 11:00 AM CDT [facility] Blood BLOOD SPECIMEN / Unknown Venipuncture / Unknown 03/07/2024 10:49 AM CDT 03/07/2024 10:52 AM CDT Casa Jenkins MD CHEMISTRY [facility] [address] [place] [id number], [place] * QFT TB1 PERFORMABLE (03/07/2024 10:49 AM CDT) TB1 0.08 IU/mL 03/09/2024 10:32 AM CDT [facility] Blood BLOOD SPECIMEN / Unknown Venipuncture / Unknown 03/07/2024 10:49 AM CDT 03/07/2024 10:52 AM CDT Casa Jenkins MD CHEMISTRY [facility] [address] [place] [address], [place] * QUANTIFERON TB GOLD PLUS (03/07/2024 10:49 AM CDT) Pathologist [facility] QFTP NIL 0.04 03/09/2024 12:43 PM CDT [facility] TB1 0.08 IU/mL 03/09/2024 12:43 PM CDT [facility] TB2 0.10 IU/mL 03/09/2024 12:43 PM CDT [facility] MITOGEN 10.00 IU/mL 03/09/2024 12:43 PM CDT [facility] QFTP TB AG1 - NIL 0.04 024 12:43 PM CDT [facility] TB1-NIL % OF NIL 100 % 03/09/20 12:43 PM CDT [facility] QFTP TB AG2 - NIL 0.06 024 12:43 PM CDT [facility] TB2-NIL % OF NIL >100 % 03/09/20 12:43 PM CDT [facility] QFTP MITOGEN - NIL 9.96 2023 12:43 PM CDT [facility] QFTP QUANTIFERON INTERPRETATION Negative Negative 03/09/2024 12:43 PM CDT [facility] Blood BLOOD SPECIMEN / Unknown Venipuncture / Unknown 03/07/2024 10:49 AM CDT 03/07/2024 10:52 AM CDT [facility] - 03/09/2024 12:43 PM CDT M. tuberculosis infection not likely, but cannot be excluded in cases of immunosuppression. CAUTION: The performance of QuantiFERON-TB Gold Plus has not been evaluated in specimens from: - Individuals with impaired or altered immune factors (HIV infections, transplant patients, those receieving immunosuppressive drugs such as corticosteroids) and those with other clinical conditions (e.g., diabetes, hematological disorders). - Individuals younger than 17 years old. ??Refer to CDC website for testing recommendations in children 6-17 years old. - women Casa Jenkins MD CHEMISTRY [facility] [address] [place], [place] [id number], from Last 3 Months Care Teams Block Trader Relationship Specialty Start Date End Date Pcp, No . PCP - General 09/22/23
[2024-03-18 20:25] VITALS: BP 140/82; PULSE 95; RESP 20; TEMP 36.2; O2SAT 99; BMI 24.7
--- NOTE | 2024-03-18 20:28 | XR_ITS ---
Patient: TANISHA CRUZ Facility:?[facility] Patient ID:?[id number] Site Patient ID:?[id number] Site :?[id number] Study:?XRay-Extremity Left SHOULDER 3V-03/18/2024 9:10:37 PM Ordering Physician:HA Final Report: INDICATION: Trauma and pain. TECHNIQUE: Left shoulder 3 views. COMPARISON: None. FINDINGS: No acute fractures or malalignment. Joint spaces are maintained. Soft tissues are unremarkable. IMPRESSION: No acute osseous abnormality. Dictated by Yasmani Perales MD @ 03/18/2024 9:22:30 PM Signed by:?Yasmani Perales MD @03/18/2024 9:22:30 PM (Electronic Signature)
--- NOTE | 2024-03-18 21:25 | ED.UPPEXIN ---
HPI - Extremity Injury (Upper) General Time Seen by Provider: 21:25 Date Seen: 03/18/24 Chief Complaint: Extremity Pain/Injury, Upper Stated Complaint: L shoulder-was fell on-heard pop-painful Time Seen by Provider: 03/18/24 21:25 Source: patient Mode of arrival: ambulatory Limitations: no limitations History of Present Illness HPI narrative: Patient is a very pleasant 23-year-old [employer] student from [place] who comes to the emergency room after sustaining an injury during [employer]. Patient states that he was involved in [employer] and someone fell on him and he landed on his left shoulder and felt a pop. Since that time he has had a difficulty moving it and it hurts quite a bit. He noted earlier that he had some tingling in his hand as well. Patient denies any other injury. He has not injured his left shoulder in the past. He uses his right hand to write and throws with his left hand. Denies elbow pain. He has a friend from school with him today. He has not taken any medications and any movement greatly increases his pain. Related Data Home Medications Medication Instructions Recorded Confirmed serdexmethylphenidate 39.2 1 tab PO DAILY 12/14/22 12/14/22 mg-dexmethylphenidate 7.8 mg capsule (Azstarys) Allergies Allergy/AdvReac Type Severity Reaction Status Date / Time Penicillins Allergy Severe Anaphylaxis Verified 03/18/24 20:25 doxycycline Allergy Verified 03/18/24 20:25 Review of Systems Status of ROS: Reports: 6 or more systems reviewed and unremarkable except as noted in History and below Narrative: No difficulty breathing. [facility] Social History Smoking Status: Never smoker Exam Narrative: Exam Narrative: Alert and oriented. Heart with regular rate and rhythm lungs are clear. Head is atraumatic normocephalic. Range of motion neck is full. Examination of the left shoulder shows perhaps some mild prominence of the AC joint. However patient tells me that this is normal for him in 1 side is higher than the other. He does have discomfort with palpation over the mid clavicle, AC joint. Hypersensitivity especially over the mid clavicle. Less but clearly evident discomfort with palpation over the superior ribs just beneath the clavicle. No edema here. No erythema or ecchymosis of the shoulder. Passive range of motion does not yield significant tenderness. Internal external motion passively does not yield exquisite tenderness. I do ask patient to move his shoulders any is very hesitant to do so and will only do with great encouragement. Elbow is intact as is flexion extension. No abnormal bulging of the biceps. He is able to flex elbow. Distally sensation and motor is intact. Initially co founder and director strength was very weak until encouraged him to squeeze much harder and he was able to do that. Const: Vital Signs, click to edit/add: Vital Signs - 24 hr 03/18/24 20:25 Temperature 97.2 F L Pulse Rate [Right Pulse Oximeter] 95 Respiratory Rate 20 Blood Pressure [Ri ght Upper Arm] 140/82 H Pulse Oximetry 99 Oxygen Delivery Me thod Room Air Documenting provider has reviewed patient's vital signs: yes Course Course ED Course: Differential diagnosis includes but is not limited to dislocation, rotator cuff tear, biceps tear, clavicle fracture, AC joint separation. X-ray of the shoulder has already been done and I do not see any obvious abnormalities. Perhaps there is a slight space between the AC joint. Reevaluation(s) Reevaluation #1: Examination post x-ray seems to show increased pain and thus I do ask patient to have 1 more view with dedicated clavicle. I do not see any fractures on the clavicle. Will place patient in sling and give 800 mg ibuprofen while awaiting official radiological read. Vital Signs Vital signs: Initial Vital Signs Temperature 97.2 F L 03/18/24 20:25 Temperature Source Temporal Artery Scan 03/18/24 20:25 Pulse Rate 95 03/18/24 20:25 Respiratory Rate 20 03/18/24 20:25 Blood Pressure 140/82 H 03/18/24 20:25 Blood Pressure Mean 101 03/18/24 20:25 Pulse Oximetry 99 03/18/24 20:25 Oxygen Delivery Method Room Air 03/18/24 20:25 Vital Signs Temperature 97.2 F L 03/18/24 20:25 Pulse Rate 95 03/18/24 20:25 Respiratory Rate 20 03/18/24 20:25 Blood Pressure 140/82 H 03/18/24 20:25 Pulse Oximetry 99 03/18/24 20:25 Oxygen Delivery Method Room Air 05/03/24 20:25 Temperature 97.2 F L 03/18/24 20:25 Pulse Rate 95 03/18/24 20:25 Respiratory Rate 20 03/18/24 20:25 Blood Pressure 140/82 H 03/18/24 20:25 Pulse Oximetry 99 03/18/24 20:25 Oxygen Delivery Method Room Air 03/18/24 20:25 Medications Administered Medications: Generic Name Dose Route Start Last Admin Trade Name Dipak PRN Reason Stop Dose Admin Ibuprofen 600 mg 03/18/24 21:34 03/18/24 21:40 Ibuprofen 200 Mg Tablet PO 03/18/24 21:35 600 mg ONCE ONE Administration MDM - Extremity Injury (Upper) MDM Narrative Medical decision making narrative: 1. Left shoulder injury-at this time radiological over-read shows no fractures and also no evidence of an AC separation. This may have been a subluxation with spontaneous reduction on the field. His pain seems out of proportion to the x-ray findings. Will place him in a sling but will have him do iymak-[id number] exercises that her demonstrated to him in the room tonight. I have asked that he avoid all alcohol on [place] this weekend and to avoid falling once again. Follow-up with orthopedics next week. I have given them the phone number for evaluation if he has continued discomfort. He may need MRI which we are not able to do this evening. Ibuprofen 600 mg p.o. given in the ED. Patient also ate fast food with his friend. Appears to be feeling better. 2. Disposition-discharge home back to campus. Return to the emergency room for worsening symptoms. Medical Records Attestation: I reviewed the patient's medical records. Imaging Data Clavicle x-ray: Attestation: I have reviewed the pertinent imaging results. My impression: Do not note any obvious fracture. Radiologist's impression: No acute fractures or malalignment. Joint spaces are maintained. Soft tissues are unremarkable. IMPRESSION: No acute osseous abnormality. Left shoulder x-ray: Attestation: I have reviewed the pertinent imaging results. My impression: I do not note any acute fracture Radiologist's impression: No acute fractures or malalignment. Joint spaces are maintained. Soft tissues are unremarkable. IMPRESSION: No acute osseous abnormality. Discharge Plan Discharge Clinical Impression: Injury of left shoulder Qualifiers: Encounter type: initial encounter Qualified Code(s): S49.92XA - Unspecified injury of left shoulder and upper arm, initial encounter Patient Disposition: Home, Self-Care Condition: Unchanged Additional Instructions: Recommend follow-up with orthopedics. The phone number is [phone]. Recommend using sling with multiple breaks during the daytime hours for [id number] exercises. Ibuprofen or Tylenol may be used for discomfort. Return to the emergency room as needed. Prescriptions: No Action Azstarys 39.2 mg- 7.8 mg capsule 1 tab PO DAILY Follow Up/Referrals: Provider,Not a Local [Primary Care Provider] - Stand Alone Forms: [employer] Info Instructions
--- NOTE | 2024-03-18 21:33 | XR_ITS ---
Patient: TANISHA CRUZ Facility:?[facility] Patient ID:?[id number] Site Patient ID:?[id number] Site :?2001 Study:?XRay-Extremity Left CLAVICLE-03/18/2024 9:52:30 PM Ordering Physician:?CARTER DIA Final Report: INDICATION: Trauma and pain. TECHNIQUE: Left clavicle 2 views. COMPARISON: Same day left shoulder radiographs. FINDINGS: No acute fractures or malalignment. Joint spaces are maintained. Soft tissues are unremarkable. IMPRESSION: No acute osseous abnormality. Dictated by Yasmani Perales MD @ 03/18/2024 10:02:06 PM Signed by:?Yasmani Perales MD @03/18/2024 10:02:06 PM (Electronic Signature)
[2024-03-18] MEDS: IBUPROFEN 200 MG TABLET 600 MG PO (21:40)
--- OUTSIDE RECORDS SUMMARY | 2024-03-18 21:41 | XMS_ITS | Clinical Summary ---
Author Name Unknown Organization [facility] Address [place], [place] [address] Care Team Providers Care Fiber Optics Supervisor Name Role Phone Pcp, No Primary Care [...] Type Department Care Team Description 03/09/2024 Telephone [facility] [address] [place] [address] Casa Jenkins MD 03/07/2024 9:55 AM CDT Office Visit [facility] [address] [place] [address] Casa Jenkins MD Concerns (Exposure to TB) 02/22/2024 Nurse Triage [facility] Centralized Nurse Triage Pcp, No Cough from [...] MITOGEN 10.00 IU/mL 03/09/2024 12:04 PM CDT [facility] Blood BLOOD SPECIMEN / Unknown Venipuncture / Unknown 03/07/2024 10:49 AM CDT 03/07/2024 10:52 AM CDT Casa Jenkins MD [facility] [address] [place] [address], * QFT TB2 PERFORMABLE (03/07/2024 10:49 AM CDT) TB2 0.10 IU/mL 03/09/2024 11:00 AM CDT [facility] Blood BLOOD SPECIMEN / Unknown Venipuncture / Unknown 03/07/2024 10:49 AM CDT 03/07/2024 10:52 AM CDT Casa Jenkins MD CHEMISTRY [facility] [address] [place] [address], [place] * QFT TB1 PERFORMABLE (03/07/2024 10:49 AM CDT) TB1 0.08 IU/mL 03/09/2024 10:32 AM CDT [facility] Blood BLOOD SPECIMEN / Unknown Venipuncture / Unknown 03/07/2024 10:49 AM CDT 03/07/2024 10:52 AM CDT Casa Jenkins MD CHEMISTRY [facility] [address] [place] [id number], [place] * QUANTIFERON TB GOLD PLUS (03/07/2024 10:49 AM CDT) Pathologist [facility] QFTP NIL 0.04 03/09/2024 12:43 PM CDT [facility] TB1 0.08 IU/mL 03/09/2024 12:43 PM CDT [facility] TB2 0.10 IU/mL 03/09/2024 12:43 PM CDT [facility] MITOGEN 10.00 IU/mL 03/09/2024 12:43 PM CDT [facility] QFTP TB AG1 - NIL 0.04 024 12:43 PM CDT [facility] TB1-NIL % OF NIL 100 % 03/09/20 12:43 PM CDT [facility] QFTP TB AG2 - NIL 0.06 024 12:43 PM CDT [facility] TB2-NIL % OF NIL >100 % 03/09/20 12:43 PM CDT [facility] QFTP MITOGEN - NIL 9.96 2023 12:43 PM CDT [facility] QFTP QUANTIFERON INTERPRETATION Negative Negative 03/09/2024 12:43 PM CDT [facility] Blood BLOOD SPECIMEN / Unknown Venipuncture / Unknown 03/07/2024 10:49 AM CDT 03/07/2024 10:52 AM CDT [facility] - 03/09/2024 12:43 PM CDT [...] old. - women Casa Jenkins MD CHEMISTRY [facility] [address] [place], [place] [id number], from Last 3 Months Care Teams Fiber Optics Supervisor Relationship Specialty Start Date End Date Pcp, No . PCP - General 09/22/23
== END 2024-03-18 22:17 | disposition home or self-care (01) ==
PROVIDERS: Emergency Provider Family Medicine
DX: M25.512 Pain in left shoulder (principal); W50.0XXA Accidental hit or strike by another person, initial encounter; Y93.74 Activity, frisbee
CPT/HCPCS: 73000; 73030; 99283; A9270

== ENCOUNTER 2024-03-23 13:43 | Outpatient (CLI) | payer OTHER, SELFPAY ==
--- NOTE | 2024-03-23 13:45 | MR_ITS ---
[facility] [address] [facility] [address] Phone:?[phone] Fax:?[phone] Referring Physician Information: ISAK Willard [address] [facility] [address] Phone:?[phone] Fax:?[phone] Patient:Lopez Mack D.O.B:?2000 Sex:?Female Phone:?[phone] [facility] MRN:?[id number] Exam Date:?03/23/2024 EXAM: MRI of the LEFT SHOULDER, without contrast CLINICAL INFORMATION: Female, 23 years old, with left shoulder pain. INDICATION: Evaluate for AC joint injury. PRIOR SURGERY: None reported. PLAIN FILMS: None available. COMPARISONS: No prior MRIs available. TECHNICAL INFORMATION: Using a 1.5T MR scanner and a localizing surface coil: coronal obliques: PD, T2, STIR sagittal obliques: PD, T2 axials: PD, T2 SEDATION: None CONTRAST: None FINDINGS: Bones: Proximal humerus: No fracture or marrow edema/pathology. No humeral Hill-Sachs or reverse Hill-Sachs lesion/impaction or contusion. Glenoid: No fracture or marrow edema/pathology. No osseous Bankart lesion. Rotator cuff and muscles/tendons: Supraspinatus: No tendinopathy, tear or atrophy. Infraspinatus: No tendinopathy, tear or atrophy. Teres minor: No tendinopathy, tear or atrophy. Subscapularis: No tendinopathy, tear or atrophy. Deltoid: No strain or atrophy. Coracoacromial arch: Acromion morphology: The acromion has type II morphology. No discrete subacromial osseous spur or os acromiale. Acromiohumeral space: The acromiohumeral space measures 5.8 mm at its narrowest point (osseous distance). Coracohumeral space: The coracohumeral space is within normal limits. Acromioclavicular joint: Joint: The AC joint alignment is normal. However, there is indistinct/disruption of the AC joint capsule and moderate surrounding soft tissue edema/hemorrhage (coronal STIR series 4 images 9-13). No AC joint arthropathy. Ligaments: Coracoclavicular ligaments are intact. Bursae: Subacromial-subdeltoid: No convincing subacromial bursal thickening/bursitis. Subcoracoid: No convincing subcoracoid bursal thickening/bursitis. Biceps tendon: The long head of the biceps tendon is present within the bicipital groove. The intra-articular and extra-articular segments are intact without tendinosis, tenosynovitis, or displacement. Glenohumeral joint: Effusion/cyst: No significant glenohumeral joint effusion. Articular cartilage: Humeral head: No osteochondral abnormalities. Glenoid: No osteochondral abnormalities. Loose bodies: No discrete intra-articular body within the joint. Labrum:?No labral tear or paralabral cyst identified on this non-arthrographic study. Inferior glenohumeral ligament/axillary pouch:?Moderate thickening of the inferior capsuloligamentous structures (coronal PD series 5 images 13-18). Additionally, there is soft tissue thickening throughout the rotator interval (sagittal PD series 7 images 9-14) IMPRESSION: 1. Philomena type I AC joint injury. 2. Findings in keeping with any clinical symptoms of adhesive capsulitis. 3. Mild narrowing of the acromiohumeral space with mild subacromial-subdeltoid bursal inflammation. 4. No rotator cuff tendinopathy or tear. 5. No tendinopathy, displacement, or tear of the biceps long head tendon. 6. No labral tear or paralabral cyst. 7. No full-thickness chondral defect or evidence of glenohumeral joint osteoarthritis. BC Electronically signed on 03/24/2024 11:10:00 AM by Daniel Reyes M.D.
--- OUTSIDE RECORDS SUMMARY | 2024-03-23 13:47 | XMS_ITS | Clinical Summary ---
Author Name Unknown Organization [facility] Address [place], [place] [address] Care Team Providers Care Advertising Inserter Name Role Phone Pcp, No Primary Care [...] Type Department Care Team Description 03/09/2024 Telephone [facility] [address] [place] [address] Casa Jenkins MD 03/07/2024 9:55 AM CDT Office Visit [facility] [address] [place] [address] Casa Jenkins MD Concerns (Exposure to TB) 02/22/2024 Nurse Triage [facility] Centralized Nurse Triage Pcp, No Cough [...] MITOGEN 10.00 IU/mL 03/09/2024 12:04 PM CDT [facility] Blood BLOOD SPECIMEN / Unknown Venipuncture / Unknown 03/07/2024 10:49 AM CDT 03/07/2024 10:52 AM CDT Casa Jenkins MD [facility] [address] [place] [address], * QFT TB2 PERFORMABLE (03/07/2024 10:49 AM CDT) TB2 0.10 IU/mL 03/09/2024 11:00 AM CDT [facility] Blood BLOOD SPECIMEN / Unknown Venipuncture / Unknown 03/07/2024 10:49 AM CDT 03/07/2024 10:52 AM CDT Casa Jenkins MD CHEMISTRY [facility] [address] [place] [phone], [place] * QFT TB1 PERFORMABLE (03/07/2024 10:49 AM CDT) TB1 0.08 IU/mL 03/09/2024 10:32 AM CDT [facility] Blood BLOOD SPECIMEN / Unknown Venipuncture / Unknown 03/07/2024 10:49 AM CDT 03/07/2024 10:52 AM CDT Casa Jenkins MD CHEMI[facility] [address] [place] [address], [place] * QUANTIFERON TB GOLD PLUS (03/07/2024 10:49 AM CDT) Pathologist [facility] QFTP NIL 0.04 03/09/2024 12:43 PM CDT [facility] TB1 0.08 IU/mL 03/09/2024 12:43 PM CDT [facility] TB2 0.10 IU/mL 03/09/2024 12:43 PM CDT [facility] MITOGEN 10.00 IU/mL 03/09/2024 12:43 PM CDT [facility] QFTP TB AG1 - NIL 0.04 024 12:43 PM CDT [facility] TB1-NIL % OF NIL 100 % 03/09/20 12:43 PM CDT [facility] QFTP TB AG2 - NIL 0.06 024 12:43 PM CDT [facility] TB2-NIL % OF NIL >100 % 03/09/20 12:43 PM CDT [facility] QFTP MITOGEN - NIL 9.96 2023 12:43 PM CDT [facility] QFTP QUANTIFERON INTERPRETATION Negative Negative 03/09/2024 12:43 PM CDT [facility] Blood BLOOD SPECIMEN / Unknown Venipuncture / Unknown 03/07/2024 10:49 AM CDT 03/07/2024 10:52 AM CDT [facility] - 03/09/2024 12:43 PM CDT M. [...] old. - women Casa Jenkins MD CHEMISTRY [facility] [address] [place], [place] [id number], from Last 3 Months Care Teams Advertising Inserter Relationship Specialty Start Date End Date Pcp, No . PCP - General 09/22/23
--- OUTSIDE RECORDS SUMMARY | 2024-03-23 13:47 | XMS_ITS | Data Portability ---
Author Name Unknown Address [address] [place] [address] Phone [phone] Organization [facility], [facility] Address [address] [place] [address] Assessment Encounter Date Assessment Date Assessment LastModified [...] group A, throat 2020 021 [facility] , [address] [place] [address], [phone], 1 09:11:01 Referral None recorded. Procedures None recorded. Surgeries None recorded. Imaging XR, femur, 2 or more view [address] [facility], [address] [place], [address], 3 09:57:25 XR, chest, 2 view 2022 023 [facility], [address] [place], [address], 3 13:04:25 Medication Orders azithromyci n 250 mg tablet 2022 023 [facility], [address] [place] [address], [address], 3 09:01:58 benzonatate 100 mg capsule 2022 023 [id number], [address] [place] [address], [address], 3 13:01:52 azithromyci n 250 mg tablet 2022 023 [id number], [address] [place] [address], [address], 3 16:54:47 azithromyci n 250 mg tablet 2020 021 [facility], [address] [place] [address], [address], 1 09:16:49 Patient TargetsNo targets recorded. Patient Instructions Encounter Date Encounter Id Patient Instructions Last Modified By Organization Details Last Modified Time 11/10/2023 [id number] Upper Respirator y Infection Your Care Instructions [...] include drinking lots of fluids and taking shjh-bva-xjehvzi pain medicine. You will probably feel better [...] amount of fluids you drink. Take an jarq-lxo-nzbamzf pain medicine, such as acetaminophen (Tylenol), ibuprofen (Advil, Motrin), or naproxen (Aleve). Read and follow all instructions on the label. Before you use cough and cold medicines, check the label. These medicines may not be safe for young children or for people with certain health problems. Be careful when taking uhnv-qqt-aqkrrzl cold or flu medicines and Tylenol at [...] expected. [email or web address] Not available 11/10/2023 09:16:36 03/15/2023 [id number] cough: care instructions [email or web address] Not available 03/15/2023 16:55:12 10/09/2021 [id number] strep throat: ca re instructions Not available [...] fluid ounces of warm water. Take an dfhd-loq-qhlzzbd pain medication, such as acetaminophen (Tylenol), ibuprofen (Advil, Motrin), or naproxen (Aleve). Read and follow all instructions on the label. Try an levw-xjz-kutvbqa anesthetic throat spray or throat lozenges, which [...] expected. Care instructions adapted under license by [facility]. This care instruction is for use with your licensed healthcare professional. If you have questions about a medical condition or this instruction, always ask your healthcare professional. [employer], [employer] disclaims any warranty or liability for your [...] throa t Strep positi ve Not Available [facility] [address] [place], [address], 10/09/2021 09:10:48 09/15/20 21 05/04/2019 XR, wrist , 3 or more view X-Ray Wrist Right min 3 views ([id number]) Cecilia Wren May 04, 2019 EXAMIN ATION: [...] examin ation of the right wrist. ___ Tufter al Attach ment: Type: Image Commen t: Gurmeet ovalle Image Signed before import by Jac king MD Filed automalex thompson y on 2018 at 1:13 PM Electr onical ly Signed by Cecilia du NP on 2018 at 1:19 PM INTERFACE [address] [place], [address], 09/15/2021 10:57:01 03/15/20 23 03/15/2023 XR, chest , 2 view X-Ray Chest 2 Views Patimonica t: HEATH MANN (: 2000 M) Pacs ID: [id number] Access ion: [id number] Orderi ng Provid er: Roseanne Person reting Provid er: Wandy Holt er CHEST 023 indica tion: Cough The bony struct ures are intact . Heart size is within normal limits . The lungs are free of infilt rates. IMPRES EMILI: No acute pulmon kina diseas e. Electr onical ly signed by Wandy Holt MD on 2022 17:02: 22 PM [facility] [address] [place], [address], 03/16/2023 09:38:49 11/10/20 23 11/10/2023 XR, femur , 2 or more view X-Ray Femur Right min 2 Views Patien t: SAMUELDAVID EdouardHEATH (: 2000 M) Pacs ID: [id number] Access ion: [id number] Orderi ng Provid er: Antonio Peck reting Provid er: Wandy Holt er Right femur 2022 Indica tion: pain There are no osseou s, articu lar or soft tissue abnorm lola Cochran emili: normal study Electr onical ly signed by Wandy Holt MD on 2022 09:35: [address] [facility] [address] [place], [address], 11/10/2023 09:39:51 Result Notes Documentation Provider Name and Address Organization Details Recorded Time Xr, Wrist, 3 Or More View : X-Ray Wrist Right min 3 views ([id number]) Cecilia Cordero May 04, 2019 EXAMINATION: RIGHT [...] HEATH CRUZ (: 2000 M) Pacs ID: [id number] Ordering Provider: Roseanne Lynch Interpreting Provider: Franci Holt CHEST 03/15/2023 indication: Cough The bony structures are intact. Heart size is within normal limits. The lungs are free of infiltrates. IMPRESSION: No acute pulmonary disease. Roseanne Lynch MD [address], [place], [address], [facility] 03/16/2023 09:38:49 Xr, Femur, 2 Or More View : X-Ray Femur Right min 2 Views Patient: HEATH CRUZ (: 2000 M) Pacs ID: [id number] Ordering Provider: Antonio Peck Interpreting Provider: Franci Holt Right femur 11/10/2023 Indication: pain There are no osseous, articular or soft tissue abnormalities. Impression: normal study Antonio Peck MD [address] [place] [address] [address], [place], [address], [facility] 11/10/2023 09:39:51 Problems Name Status Onset Date Resolution Date Notes Provider Name and Address Organization Details Recorded Time Viral pharyngitis Active 2017 Not Available [facility] 04:01:23 Eczema Active 2017 Not Available [facility] 04:01:23 Verruca vulgaris Active 2018 Description: OTHER VIRAL WARTS Not Available [facility] 04:01:23 Pain of right wrist Active 2018 Description: PAIN IN RIGHT WRIST Not Available [facility] 04:01:24 Increased skin sensitivity Active 2018 Description: CUTANEOUS SENSITIVITY Not Available [facility] 04:01:24 Post-inflamma tory hyperpigmenta tion Active 2018 Description: POSTINFLAMMAT ORY HYPERPIGMENTA TION Not Available [facility] 04:01:24 Perforation of right tympanic membrane Completed 201809/14/2019 Description: STREPTOCOCCAL PHARYNGITIS Not Available [facility] 04:01:24 Eruption Completed 201809/14/2019 Description: RASH AND OTHER NONSPECIFIC SKIN ERUPTION Not Available [facility] 04:01:24 Open wound of knee Completed 201712/18/2017 Description: LACERATION WITHOUT FOREIGN BODY, RIGHT KNEE, INITIAL ENCOUNTER Not Available [facility] 04:01:25 Injury of right lower leg Completed 201712/16/2017 Description: UNSPECIFIED INJURY OF RIGHT LOWER LEG, INITIAL ENCOUNTER Not Available [facility] 04:01:25 Acute pharyngitis Completed 201605/05/2017 Description: ACUTE PHARYNGITIS, UNSPECIFIED Not Available [facility] 04:01:25 Cough Completed 201511/03/2016 Description: COUGH Not Available [facility] 04:01:25 Pneumonia Completed 201511/03/2016 Description: PNEUMONIA, UNSPECIFIED ORGANISM Not Available [facility] 04:01:25 Problem Notes None recorded. Procedures Surgical History None recorded. Imaging Results Imaging Date Name Status LastModified by Organiz at[facility], [facility] Details LastModified Time 05/04/2019 XR, wrist, 3 or more view completed [place] [id number] [place] [address], [address], 09/15/2021 10:57:01 03/15/2023 XR, chest, 2 view completed [facility] [address] [place], [address], 03/16/2023 09:38:49 11/10/2023 XR, femur, 2 or more view [facility] [address] [place], [address], 11/10/2023 09:39:51 Procedure Notes None recorded. Medical Equipment None Reported. Allergies Allergen ID Allergen Name Allergen Category Reaction Reaction Severity Criticality Documentation Date Start Date Code Code System Note Provider Name and Address Organization Details Recorded Time 453790 Penicilli n Not available Not available Not available Not available 09/04/20212015 71438 RxNorm Sever ity: Criti miranda Entry Date: 10/06 Not Available [facility] 15:14:42 513162 doxycycli ne Not available rash moderate high 11/10/2023 3640 RxNorm histo rical Raquel [facility] 3 08:36:32 No known drug allergies Medications [...] % 89 /min 16 /min 98.2 [degF] 63205.8 9966 g 94 mm[Hg] 70 mm[Hg] Not Available [facility] 22:16:02 Date Recorded Oxygen saturation Oxygen saturation in Arterial blood by Pulse oximetry Heart rate Respiratory rate Body temperature Body weight Provider Name and Address Organization Details Last Updated DateTime 8 98 % 98 % 64 /min 16 /min 98.1 [degF] 83423.0 61957 g Not Available [facility] 1 22:16:03 Date Recorded Oxygen saturation Oxygen saturation in Arterial blood by Pulse oximetry Heart rate Respiratory rate Body temperature Provider Name and Address Organization Details Last Updated DateTime 7 98 % 98 % 78 /min 16 /min 98.1 [degF] Not Available [facility] 1 22:16:03 Date Recorded Oxygen saturation Oxygen saturation in Arterial blood by Pulse oximetry Heart rate Respiratory rate Body temperature Systolic blood pressure Diastolic blood pressure Provider Name and Address Organization Details Last Updated DateTime 9 98 % 98 % 60 /min 14 /min 98.2 [degF] 108 mm[Hg] 78 mm[Hg] Not Available [facility] 1 22:16:02 Date Recorded Oxygen saturation Oxygen saturation in Arterial blood by Pulse oximetry Heart rate Respiratory rate Body temperature Body weight Systolic blood pressure Diastolic blood pressure Provider Name and Address Organization Details Last Updated DateTime 9 98 % 98 % 95 /min 18 /min 98.4 [degF] 91341.7 792 g 126 mm[Hg] 78 mm[Hg] Not Available [facility] 1 22:16:02 Date Recorded Oxygen saturation Oxygen saturation in Arterial blood by Pulse oximetry Heart rate Respiratory rate Body temperature Provider Name and Address Organization Details Last Updated DateTime 6 98 % 98 % 87 /min 16 /min 98.1 [degF] Not Available [facility] 1 22:16:03 Date Recorded Oxygen saturation Oxygen saturation in Arterial blood by Pulse oximetry Heart rate Respiratory rate Body temperature Provider Name and Address Organization Details Last Updated DateTime 8 99 % 99 % 54 /min 16 /min 98.2 [degF] Not Available [facility] 1 22:16:03 Date Recorded Heart rate Respiratory rate Body temperature Oxygen saturation Oxygen saturation in Arterial blood by Pulse oximetry Systolic blood pressure Diastolic blood pressure Provider Name and Address Organization Details Last Updated DateTime 1 58 /min 18 /min 98 [degF] 98 % 98 % 118 mm[Hg] 74 mm[Hg] [facility] 09:[facility]:42 Date Recorded Respiratory rate Heart rate Body temperature Oxygen saturation Oxygen saturation in Arterial blood by Pulse oximetry Systolic blood pressure Diastolic blood pressure Provider Name and Address Organization Details Last Updated DateTime 3 16 /min 81 /min 98.7 [degF] 98 % 98 % 118 mm[Hg] 70 mm[Hg] Noé Wilson [facility] 3 15:57:58 Date Recorded Body temperature Respiratory rate Oxygen saturation Oxygen saturation in Arterial blood by Pulse oximetry Heart rate Systolic blood pressure Diastolic blood pressure Provider Name and Address Organization Details Last Updated DateTime 3 97.5 [degF] 14 /min 99 % 99 % 70 /min 114 mm[Hg] 70 mm[Hg] Raquel [facility] 3 08:35:57 Social History Question Answer Notes LastModified by Organizat ion Details LastModified Time Tobacco Smoking Status Never Smoker Not Available [facility] 09/16/2021 08:57:44 What Was The Date Of [...] Encounter Closed Date Diagnosis/Indication Diagnosis SNOMED-CT Code [id number] ANNMARIE SARAVIA [facility] [address] [place] [address] 10/09/2021 08:50:47 10/09/2021 09:18:19 Streptococcal sore throat [id number] MD ARI [facility] [address] [place] [address] 03/15/2023 15:37:40 03/16/2023 13:04:24 Cough [id number] MD ARI Reynoso[facility] [address] [place] [address] 11/10/2023 08:06:43 11/10/2023 09:57:25 Acute sinusitis 86663806 Pain of right thigh 3169 [id number] 7 Health Concerns Section Related Observation LastModified by Organization Detai ls LastModified Time None Recorded Concern Status LastModified by Organization Details LastModified Time None Recorded Advance Directives Directive None Recorded Payers Encounter Date Sequence Insurance Name Policy Number Policy Rivera Covered Member ID Rivera Member ID Guarantor Name 11/10/2023 1 [facility] [id number] [facility] Stevie Martina [id number] Heath Martina 03/15/2023 2 [employer] ([employer]) [id number] Heath Martina [id number] Heath Martina 03/15/2023 1 [facility] [id number] [facility] Stevie Martina [id number] Heath Martina 10/09/2021 2 [facility] [employer] [id number] Heath Martina [id number] Heath Martina Notes Date Note Type Note Provider Name a la Address Organization Details Recorded Time 10/09/2021 text/html HPI Notes: Pt 20 yr old male presents with sore throat and ear pain since Thursday. Reports his roommate was positive for Strep. Currently afebrile, had negative Covid test yesterday. ANNMARIE SARAVIA [address] [place] [address],[address], [place], [address], [facility] 10/09/2021 09:18:06 03/15/2023 text/html HPI Notes: notes 29-ltav[age]vei male presents today with complaints of chest [...] in 2018 and it feels the same Roesanne Lynch MD [address] [facility],[address], [place], [address], [facility] 03/16/2023 13:04:14 11/10/2023 text/html HPI Notes: 1 [...] Tried sudafed with temporary relief Senior in [facility] Antonio Peck MD [address] [place] [address],[address], [place], [address], [facility] 11/10/2023 09:57:20
--- OUTSIDE RECORDS SUMMARY | 2024-03-23 13:48 | XMS_ITS | Data Portability ---
Author Name Unknown Address [address] [place] [address] Phone [phone] Organization [facility] [place] Address [address] [address] Assessment Encounter Date Assessment Date Assessment LastModified [...] they understood and did agree with plan. [email or web address] Not available 07/10/2022 11:09:24 07/17/2022 07/17/2022 I. [...] patient for scheduling . 2021 022 [facility], [address] [place], [address], 2 11:08:49 XR, lumbosacra l spine 2021 022 [email or web address] In-House Test, For Internal Use Only, Do Not Delete/merge, [id number] 2 10:34:43 MRI, hip, w/o contrast 2019 020 [facility] In-House Test, For Internal Use Only, Do Not Delete/merge, [id number] 0 16:50:23 XR, hip, unilateral 2019 020 [email or web address] In-House Test, For Internal Use Only, Do Not Delete/merge, [id number] 0 15:59:51 MRI, lower leg, w/o contrast 2017 018 [facility] In-House Test, For Internal Use Only, Do Not Delete/merge, [id number] 8 15:03:27 MRI, lower leg, w/o contrast 2016 017 [facility] In-House Test, For Internal Use Only, Do Not Delete/merge, [id number] 7 08:50:32 XR, ankle, 3 or more view 2016 017 [email or web address] In-House Test, For Internal Use Only, Do Not Delete/merge, [id number] 7 09:07:42 XR, ankle, 3 or more view 2016 017 [email or web address] In-House Test, For Internal Use Only, Do Not Delete/merge, [id number] 7 08:46:16 MRI, ankle, w/o contrast 2016 017 [facility] Not available 7 08:43:33 XR, ankle, 3 or more view 2016 017 [email or web address] In-House Test, For Internal Use Only, Do Not Delete/merge, [id number] 7 09:11:55 Medication Orders Celebrex 200 mg capsule 2021 [facility], [address] [facility], [place], [address], 08:38:41 Celebrex 200 mg capsule 2021 022 [facility], [address] [facility], [place], [address], 09:05:33 Mobic 15 mg tablet 2021 [facility], [address] [place] [address], [address], 14:34:57 methylpred nisolone 4 mg tablets in a dose pack 2021 022 [facility], [address] [facility], [place], [address], 10:17:02 methylpred nisolone 4 mg tablets in a dose pack [address] [facility], [address] [place] [address], [place], [address], 8 14:45:33 Patient TargetsNo targets recorded. Patient [...] For Internal Use Only, Do Not Delete/merge, [id number] 04/24/2017 08:51:23 04/24/20 17 MRI, lower leg, w/o contr ast No observ ation record ed. [email or web address] In-House Test For Internal Use Only, Do Not Delete/merge, [id number] 04/24/2017 08:52:19 04/09/20 18 04/09/2018 MRI, lower leg, w/o contr ast No observ ation record ed. [employer] [id number] [place], [address], 04/12/2018 15:54:44 04/09/20 18 04/09/2018 MRI, lower leg, w/o contr ast No observ ation record ed. [facility] [address], [address], 04/12/2018 15:54:44 12/20/19 20 12/20/2019 MRI, hip, w/o contr ast No observ ation record ed. [employer], [employer]. [id number] [place], [address], 12/21/2019 11:47:04 12/20/19 20 12/20/2019 MRI, hip, w/o contr ast No observ ation record ed. [facility] [address] [place] [address], [address], 12/21/2019 11:47:04 07/10/20 22 XR, lumbo sacra l spine No observ ation record ed. [email or web address] In-House Test For Internal Use Only, Do Not Delete/merge, [id number] 07/10/2022 10:34:40 07/12/20 22 07/12/2022 MRI, lumba r spine , w/o contr ast No observ ation record ed. [facility] [address], [place], [address], 07/14/2022 08:31:36 07/16/20 MRI, lumba r spine , w/o contr ast No observ ation record ed. [facility] [address] [place], [address], 07/16/2022 15:48:37 09/23/20 22 09/23/2022 epidu ral stero id injec tion, lumba r (PROC ) No observ ation record ed. [email or web address] [facility] [address], [address], 09/24/2022 09:58:08 Result Notes None recorded. Problems Name Status Onset Date Resolution Date Notes Provider Name and Address Organization Details Recorded Time Ankle pain Active 7 Isma Mcgill MD [address] [place], [address], [facility] 01/29/2017 09:07:47 Problem Notes None recorded. Procedures Surgical History None recorded. Imaging Results Imaging Date Name Status LastModified by [facility] Details LastModified Time 02/02/2017 MRI, ankle, w/o contrast completed [email or web address] Information not available 02/02/2017 10:54:58 04/24/2017 MRI, lower leg, w/o contrast completed [email or web address] In-House Test For Internal Use Only, Do Not Delete/merge, [id number] 04/24/2017 08:51:23 04/24/2017 MRI, lower leg, w/o contrast completed [email or web address] In-House Test For Internal Use Only, Do Not Delete/merge, [id number] 04/24/2017 08:52:19 04/09/2018 MRI, lower leg, w/o contrast completed [employer] [address] [place], [address], 04/12/2018 15:54:44 04/09/2018 MRI, lower leg, w/o contrast completed [facility] [address] [place], [address], 04/12/2018 15:54:44 12/20/2019 MRI, hip, w/o contrast completed [employer] [address] [place], [address], 12/21/2019 11:47:04 12/20/2019 MRI, hip, w/o contrast completed [facility] [address] [place], [address], 12/21/2019 11:47:04 07/10/2022 XR, lumbosacral spine completed [email or web address] In-House Test For Internal Use Only, Do Not Delete/merge, [id number] 07/10/2022 10:34:40 07/12/2022 MRI, lumbar spine, w/o contrast completed [facility] [address] [place], [address], 07/14/2022 08:31:36 07/16/2022 MRI, lumbar spine, w/o contrast completed [facility] [address] [place], [address], 07/16/2022 15:48:37 09/23/2022 epidural steroid injection, lumbar (PROC) completed [facility] [address], [address], 09/24/2022 09:58:08 Procedure Notes None recorded. Medical Equipment None Reported. Allergies Allergen ID Allergen Name Allergen Category Reaction Reaction Severity Criticality Documentation Date Start Date Code Code System Note Provider Name and Address Organization Details Recorded Time 08760 penicilli n G Not available Not available Not available Not available 01/29/2017 7980 RxNorm ISAK INFANTE [address], [place], [address], [facility] 7 08:39:50 Medications Name Sig Start [...] 07/10/2022 180.34 cm 62 % 24.4 kg/m2 18128.66 g [facility] 07/10/2022 09:58:27 Social History Question Answer Notes LastModified by Organizat ion Details LastModified Time Tobacco Smoking Status Never Smoker ISAK INFANTE [address], [place], [address], [facility] 01/29/2017 08:39:54 What Is Your Level Of Alcohol Consumption? None Information not available 01/29/2017 Marital Status Single Informatio n not available 01/29/2017 What Was The Date Of Your Most Recent Tobacco Screening? 04/13/2018 Information n ot available 06/10/2019 Sex: Male Functional Status None recorded. Mental Status None recorded. Family History Nothing Reported. Medical History Condition Response Diabetes N Bleeding Disorder N Gout N Thyroid Disease N High Blood Pressure N Arthritis N Acid Reflux N Cancer N Asthma N COPD N HIV/AIDS N Substance Abuse N Clotting Disorder (ie; blood clot) N Rheumatoid Arthritis N Osteoporosis N Kidney Disease N Past Encounters Encounter ID Performer Location Encounter Start Date Encounter Closed Date Diagnosis/Indication Diagnosis SNOMED-CT Code [id number] Isma Mcgill MD [facility] [address] [place] [address] 01/29/2017 08:19:25 01/29/2017 09:11:54 Ankle pain [id number] Isma Mcgill MD [facility] [address] [place] [address] 02/03/2017 08:25:00 02/03/2017 09:10:43 Fracture of calcaneus [id number] Isma Mcgill MD [facility] [address] [place] [address] 02/24/2017 08:09:39 02/24/2017 08:46:16 Fracture of calcaneus 560018908 [id number] Isma Mcgill MD [facility] [address] [place] [address] 03/03/2017 08:24:40 03/03/2017 09:07:42 Fracture of calcaneus [id number] Isma Mcgill MD [facility] [address] [place] [address] 03/10/2017 08:17:30 03/10/2017 08:56:10 Fracture of calcaneus [id number] Isma Mcgill MD [facility] [address] [place] [address] 03/31/2017 08:21:37 04/04/2017 16:35:56 Ankle pain [id number] Isma Mcgill MD [facility] [address] [place] [address] 04/21/2017 08:27:01 04/21/2017 08:56:21 Stress fracture of tibia 624603981 Anterior nuñez splints [id number] Isma Mcgill MD [facility] [address] [place] [address] 05/26/2017 07:59:01 05/26/2017 08:34:01 Anterior nuñez splints [id number] MD MARJORIE [facility] [place] [address] [place] [address] 04/09/2018 07:57:46 04/09/2018 13:27:57 Stress fracture of tibia 521065306 [id number] Isma Mcgill MD [facility] [address] [place] [address] 04/13/2018 14:09:52 04/13/2018 14:44:09 Anterior nuñez splints [id number] [id number] Isma Mcgill MD [facility] [place] [address] [place] [address] 12/13/2019 14:42:35 12/13/2019 16:01:51 Articular cartilage disorder of hip 030134890 [id number] Isma Mcgill MD [facility] [address] [place] [address] 12/27/2019 14:36:36 12/27/2019 15:00:59 Strain of flexor muscle of hip [id number] [facility] [address] [place] [address] 07/10/2022 09:46:29 07/11/2022 03:47:36 Spondylolysis [id number] [id number] Isma Mcgill MD [facility] [address] [place] [address] 07/17/2022 10:10:11 07/17/2022 12:58:54 Spondylolysis 479384464 Pain in lumbar spine [id number] 627559 [id number] Isma Mcgill [facility] [address] [address] 08/13/2022 14:02:42 08/13/2022 14:09:13 Pain in lumbar spine [id number] MD MARJORIE God[facility] [place] [address] [place] [address] 09/11/2022 08:43:27 09/11/2022 09:05:49 Pain in lumbar spine [id number] MD MARJORIE Godfrey [facility] [place] [address] [place] [address] 10/21/2022 08:35:09 10/21/2022 11:21:35 Pain in lumbar spine [id number] Health Concerns Section Related Observation LastModified by Organization Detai ls LastModified Time None Recorded Concern Status LastModified by Organization Details LastModified Time None Recorded Advance Directives Directive None Recorded Payers Encounter Date Sequence Insurance Name Policy Number Policy Rivera Covered Member ID Rivera Member ID Guarantor Name 10/21/2022 1 [facility] [id number] [facility] [id number] 09/11/2022 1 [facility] [id number] [facility] [id number] [facility] 08/13/2022 1 [facility] [id number] [facility] [id number] [facility] 07/17/2022 1 [facility] [id number] [facility] [id number] [facility] 07/10/2022 1 [facility] [id number] [facility] [id number] [facility] 12/27/2019 2 [employer]: [place] [employer] (O) [id number] Camilla Martina [id number] [facility] 12/13/2019 2 [place]: [place] [employer] (O) [id number] [facility] [id number] [facility] 04/13/[address] [place] [id number] [facility] [id number] [facility] 04/09/2018 1 [facility] [id number] [facility] [id number] [facility] 05/26/2017 1 [facility] [id number] [facility] [id number] [facility] 04/21/2017 1 [employer] (POS) [id number] Camilla A Martina [id number] Camilla Martina 03/31/2017 1 [employer] (POS) [id number] Camilla A Martina [id number] Camilla Martina 03/10/2017 1 [employer] (POS) [id number] Camilla A Martina [id number] [facility] 03/03/2017 1 [employer] (POS) [id number] Camilla A Martina [id number] [facility] 02/24/2017 1 [employer] (POS) [id number] Camilla A Martina [id number] Camilla Martina 02/03/2017 1 [employer] (POS) [id number] Camilla A Martina [id number] [facility] 01/29/2017 1 [employer] (POS) [id number] Camilla A Martina [id number] [facility] Notes Date Note Type Note Provider [...] change in bowel/bladder habits Isma Mcgill MD [address] [place] [address],[address], [place], [address], [facility] 01/29/2017 09:08:29 02/03/2017 text/html HPI Notes: [...] in bowel/bladder habits Isma Mcgill MD [address] [place] [address], [address], [facility] 02/03/2017 09:08:06 02/24/2017 text/html HPI Notes: [...] in bowel/bladder habits Isma Mcgill MD [address] [place] [address], [address], [facility] 02/24/2017 08:40:02 03/03/2017 text/html HPI Notes: [...] in bowel/bladder habits Isma Mcgill MD [address] [place], [address], [facility] 03/03/2017 08:55:28 03/10/2017 text/html HPI Notes: [...] in bowel/bladder habits Isma Mcgill MD [address] [place] [address], [address] 03/10/2017 08:44:04 03/31/2017 text/html HPI [...] in bowel/bladder habits Isma Mcgill MD [address] [place], [address] 04/03/2017 14:38:08 04/21/2017 text/html HPI [...] in bowel/bladder habits Isma Mcgill MD [address] [place] [address], [address] 04/21/2017 16:13:33 05/26/2017 text/html HPI [...] in bowel/bladder habits Isma Mcgill MD [address] [place] [address], [address] 05/26/2017 08:26:05 04/09/2018 text/html HPI [...] in bowel/bladder habits Isma Mcgill MD [address] [place] [address], [address], [facility] 04/09/2018 13:05:59 04/13/2018 text/html HPI Notes: [...] in bowel/bladder habits Isma Mcgill MD [address] [address], [facility] 04/13/2018 14:42:40 12/13/2019 text/html HPI Notes: [...] in bowel/bladder habits Isma Mcgill MD [address] [place] [address], [address], [facility] 12/13/2019 15:59:59 12/27/2019 text/html HPI Notes: [...] in bowel/bladder habits Isma Mcgill MD [address] [place], [address], [facility] 12/27/2019 15:00:31 07/10/2022 text/html HPI Notes: [...] hx of back pain ISAK Mcgill [address] [facility], [place], [address], [facility] 07/10/2022 11:09:34 07/17/2022 text/html HPI Notes: [...] of back pain Isma Mcgill MD [address] [place], [address], [facility] 07/17/2022 10:16:12 08/13/2022 text/html HPI Notes: [...] conducted via telephone Isma Mcgill MD [address] [place], [address], [facility] 08/13/2022 14:08:58 09/11/2022 text/html HPI Notes: [...] conducted via telephone Isma Mcgill MD [address] [facility], [place], [address], [facility] 09/11/2022 09:05:10 10/21/2022 text/html HPI Notes: [...] conducted via telephone Isma Mcgill MD [address], [place], [address], [facility] 10/21/2022 08:36:59
== END 2024-03-23 13:44 | disposition home or self-care (01) ==
PROVIDERS: Visit Provider Physician Assistant Surgical
DX: M25.512 Pain in left shoulder (principal); M75.02 Adhesive capsulitis of left shoulder; S49.92XA Unspecified injury of left shoulder and upper arm, initial encounter
CPT/HCPCS: 73221